=== PATIENT | male | born 1995 | race Two or more races ===

== ENCOUNTER 2019-06-30 13:31 | Emergency (ER) | payer MEDICAID ==
[~2019-06-30] VITALS: Ht 175.3 cm; Wt 68.0 kg
[2019-06-30 14:18] VITALS: BP 114/67
== END 2019-06-30 15:27 | disposition home or self-care (01) ==
LOC: ER 13:32
DX: F41.9 Anxiety disorder, unspecified (principal); F17.210 Nicotine dependence, cigarettes, uncomplicated

== ENCOUNTER → 2020-03-13 | Emergency (ER) | payer MEDICAID ==
[~2020-03-13] VITALS: Ht 175.3 cm; Wt 70.3 kg
[~2020-03-13] MED LIST: AZITHROMYCIN 250 MG TAB PO ONE; cefTRIAXone SODIUM 250 MG VL IM ONE
[2020-03-13 14:55] VITALS: BP 129/96
== END | disposition home or self-care (01) ==
LOC: ER 14:31
DX: N39.0 Urinary tract infection, site not specified (principal); F17.210 Nicotine dependence, cigarettes, uncomplicated
CPT/HCPCS: 81002; 96372; 99283; J0696

== ENCOUNTER 2021-02-25 03:26 | Emergency (ER) | payer MEDICAID ==
[~2021-02-25] VITALS: Ht 175.3 cm; Wt 72.6 kg
[2021-02-25 03:28] VITALS: BP 135/102
== END 2021-02-25 03:43 ==
LOC: ER 03:26
DX: F14.10 Cocaine abuse, uncomplicated (principal); F41.9 Anxiety disorder, unspecified; J45.909 Unspecified asthma, uncomplicated; F17.210 Nicotine dependence, cigarettes, uncomplicated

== ENCOUNTER 2025-08-22 18:58 | Emergency (ER) | payer MEDICAID, OTHER ==
[~2025-08-22] VITALS: Ht 175.3 cm; Wt 58.6 kg
[2025-08-22 19:05] VITALS: BP 114/77; PULSE 96; RESP 20; TEMP 98; O2SAT 99
[2025-08-22] MEDS: SODIUM CHLORIDE 0.9% 1,000 ML IV ONE ×2 (19:30)
[2025-08-22 19:45] LABS: Hematocrit 42.2 % (41.0-53.0); Hemoglobin 14.4 g/dL (13.5-17.5); Mean Corpuscular Hemoglobin 28.7 pg (28.0-32.0); Mean Corpuscular Volume 84.3 fL (80.0-100.0); Nucleated Red Blood Cells % 0.0 %
[2025-08-22 19:57] LABS: Alanine Aminotransferase 23 U/L (7-40); Albumin 4.8 g/dL (3.2-4.8); Alkaline Phosphatase 135 U/L (46-116); Anion Gap 17 (5-15); BUN/Creatinine Ratio 5.2 (10.0-20.0); Blood Urea Nitrogen < 5 mg/dL (9-23); Calcium 9.3 mg/dL (8.7-10.4); Carbon Dioxide 17 mmol/L (20-31); Chloride 102 mmol/L (98-107); Magnesium 2.0 mg/dL (1.6-2.6); Potassium 3.3 mmol/L (3.5-5.1); Sodium 136 mmol/L (136-145); Total Protein 7.7 g/dL (5.7-8.2)
[2025-08-22 19:59] LABS: Bilirubin, Total 1.3 mg/dL (0.2-1.0)
[2025-08-22 20:03] LABS: Glucose 513 mg/dL (74-106)
--- NOTE | 2025-08-22 21:08 | ED.PDOC ---
History of present illness HPI Comments 29-year-old male is brought in by ambulance for chief complaint of hyperglycemia. Per EMS report, patient has a significant history for asthma and diabetes and was found with an on scene blood glucose of 589 after drinking alcohol and smoking cocaine, intermittently, all day, today. Patient reports on having additional associated symptoms of left back pain and diarrhea. EN route, patient received 500 mL of normal saline bolus and is reported to have taken 20 units of his insulin before EMS arrival on scene. Patient takes insulin and 500 mg of metformin for managing his diabetes. Patient denies on having any further acute symptoms at this time, including chest pain, shortness of breath, polyuria, polyphagia, and polydipsia. REVIEW OF SYSTEMS: General: No fever, no chills, HEENT: No neck pain, no blurred vision Cardiac: No chest pain. No palpitations. Lungs: No shortness of breath, GI: Diarrhea. No abdominal pain, no vomiting Musculoskeletal: Left back pain. No joint pain. Skin: No rash, no wound Neuro: No headache, no dizziness, no syncope Endocrine: Hyperglycemia PHYSICAL EXAM: General: Awake, alert and oriented. No acute distress. Skin: Skin in warm, dry and intact without rashes or lesions. HEENT: The head is normocephalic and atraumatic. Conjunctivae are clear without exudates or hemorrhage. Sclera is non-icteric. Neck: Normal range of motion. No JVD. Cardiac: Regular rate Respiratory: No signs of respiratory distress. No Stridor. Extremities: Upper and lower extremities are atraumatic in appearance without deformity. Neurological: The patient is awake, alert and oriented to person, place, and time with normal speech. Speech is clear. There is no facial asymmetry. Psychiatric: Appropriate mood and affect. Good judgement and insight. Chief Complaint: Hyperglycemia Time Seen by MD: 19:20 Primary Care Provider: NONE History of present illness: Nurses Notes, Ultrasound Supervisor Notes, Medications, Allergies Allergies: Coded Allergies: NO KNOWN ALLERGIES (Unverified , 05/14/19) Information Source: Patient, Emergency Med Personnel Mode of Arrival: EMS Past Medical History PAST MEDICAL HISTORY: Anxiety, Asthma, DM, Seizures Surgical History: Denies all surgeries Family History Family History: Unknown Social History Smoker: Cigarettes Alcohol: Other Drugs: Cocaine Lives In: Home Was a procedure done? Was a procedure done?: No Differential Diagnosis (DM) Differential Diagnosis: Dehydration, Diabetic Coma, DKA, Electrolyte Abnormality, Hyperglycemia, Other (Toxic encephalopathy) X-Ray, Labs, Meds, VS Vital Signs Date Time Temp Pulse Resp B/P (MAP) Pulse Ox O2 Delivery O2 Flow Rate FiO2 08/22/25 19:05 98.0 96 20 114/77 99 98.0 Lab Test 08/22/25 19:34 08/22/25 19:28 08/22/25 19:10 Range/Units White Blood Count 5.7 4.4-10.8 10^3/uL Red Blood Count 5.00 4.5-5.90 10^6/uL Hemoglobin 14.4 13.5-17.5 g/dL Hematocrit 42.2 41.0-53.0 % Mean Corpuscular Volume 84.3 80.0-100.0 fL Mean Corpuscular Hemoglobin 28.7 28.0-32.0 pg Mean Corpuscular Hemoglobin Concent 34.1 32.0-36.0 g/dL Red Cell Distribution Width 13.0 11.8-14.3 % Platelet Count 251 140-450 10^3/uL Mean Platelet Volume 8.8 6.9-10.8 fL Neutrophils (%) (Auto) 54.0 37.0-80.0 % Lymphocytes (%) (Auto) 33.7 10.0-50.0 % Monocytes (%) (Auto) 10.4 0.0-12.0 % Eosinophils (%) (Auto) 1.1 0.0-7.0 % Basophils (%) (Auto) 0.8 0.0-2.0 % Neutrophils # (Auto) 3.1 1.6-8.6 10 ^3/uL Lymphocytes # (Auto) 1.9 0.4-5.4 10 ^3/uL Monocytes # (Auto) 0.6 0-1.3 10 ^3/uL Eosinophils # (Auto) 0.1 0-0.8 10 ^3/uL Basophils # (Auto) 0 0-0.2 10 ^3/uL Nucleated Red Blood Cells 0.0 % Sodium Level 136 136-145 mmol/L Potassium Level 3.3 L 3.5-5.1 mmol/L Chloride Level 102 98-107 mmol/L Carbon Dioxide Level 17 L 20-31 mmol/L Anion Gap 17 H 5-15 Blood Urea Nitrogen < 5 L 9-23 mg/dL Creatinine 0.97 0.700-1.30 mg/dL Glomerular Filtration Rate Calc 108 >90 mL/min BUN/Creatinine Ratio 5.2 L 10.0-20.0 Serum Glucose 513 *H 74-106 mg/dL Calcium Level 9.3 8.7-10.4 mg/dL Magnesium Level 2.0 1.6-2.6 mg/dL Total Bilirubin 1.3 H 0.2-1.0 mg/dL Aspartate Amino Transferase (AST) 20 13-40 U/L Alanine Aminotransferase (ALT) 23 7-40 U/L Alkaline Phosphatase 135 H 46-116 U/L Total Protein 7.7 5.7-8.2 g/dL Albumin 4.8 3.2-4.8 g/dL Beta-Hydroxybutyric Acid 0.648 H < 0.4 mmol/L Plasma/Serum Blood Alcohol 65.3 H <10 mg/dL Blood Gas Specimen Type Venous Blood Gas Sample Site Vbg - n/a Blood Gas Patient Temperature 37.0 Arterial Blood Date Drawn [id number] [place]ard Test N/a Venous Blood pH 7.317 L 7.320-7.430 Venous Blood pCO2 at Patient Temp 30.3 L 38.0-54.0 mmHg Venous Blood pO2 at Patient Temp < 36.5 23.0-48.0 mmHg Venous Blood HCO3 15.2 L 22.0-29.0 mmol/L Venous Blood Base Excess -9.5 L -2.0-3.0 mmol/L Blood Gas Modality Room air FiO2 % 21.0 Urine Color Colorless Yellow Urine Clarity Clear Clear Urine pH 5.0 5.0-9.0 Urine Specific [place] 1.043 H 1.001-1.035 Urine Protein Normal Negative Urine Ketones 1+ H Negative Urine Blood Normal Negative /uL Urine Nitrite Negative Negative Urine Bilirubin Negative Negative Urine Urobilinogen Normal Negative mg/dL Urine Leukocyte Esterase Negative Negative /uL Urine Glucose 4+ H Normal mg/dL Urine Opiates Screen Neg NEGATIVE Urine Fentanyl Screen Neg NEGATIVE Urine Barbiturates Screen Neg NEGATIVE Urine Phencyclidine Screen Neg NEGATIVE Urine Amphetamines Screen Neg NEGATIVE Urine Benzodiazepines Screen Neg NEGATIVE Urine Cocaine Screen Pos NEGATIVE Urine Cannabinoids Screen Neg NEGATIVE Time of 1ST Reevaluation: 19:50 Reevaluation 1ST: Unchanged Patient Education/Counseling: Need For Follow Up Family Education/Counseling: No Family Present SEPSIS Sepsis Screen Date sepsis recognized/suspect: Aug 22, 2025 Time Sepsis recognized/suspect: 1905 Recent Procedure: No On Antibiotic Therapy: No Respiratory Rate >20: No Heart Rate >90: Yes Temp<36 C (96.8 F) or >38.3 C: No SBP <90 or MAP <65 mmHG: No New Acute Mental Status Change: No Is the patient on CPAP, BIPAP,: No Physician Orders Venous Blood Gas (08/22/25 19:39) Vital Signs Date Time Temp Pulse Resp B/P (MAP) Pulse Ox O2 Delivery O2 Flow Rate FiO2 08/22/25 19:05 98.0 96 20 114/77 99 98.0 Laboratory Tests Test 08/22/25 19:34 White Blood Count 5.7 10^3/uL (4.4-10.8) Departure 1 Departure Time of Disposition: 05:04 Impression: Primary Impression: Hyperglycemia Additional Impressions: DKA (diabetic ketoacidosis) Eloped from emergency department Disposition: LEFT AGAINST MEDICAL ADVICE Condition: Stable Comments Patient was seen and evaluated on arrival to the emergency department. Discussed plan of care with the patient. He eloped from the emergency department prior to receiving treatment. Critical Care Note Critical Care Time?: No Stability Stability form required: No Heart Score Heart Score: Heart Score Response (Comments) Value History N/A 0 EKG N/A 0 Age N/A 0 Risk Factors N/A 0 Troponin N/A 0 Total 0 I personally scribed for SHAINA STEVENS MD ([email or web address]) on 08/22/25 at 21:08. Electronically submitted by Andrew Carrillo ([email or web address]). I personally scribed for SHAINA STEVENS MD ([email or web address]) on 08/22/25 at 21:47. Electronically submitted by Andrew Carrillo ([email or web address]). SHAINA STEVENS MD Aug 22, 2025 21:08
[2025-08-22 23:03] LABS: Urine Protein, UAD Normal (Negative)
[2025-08-22 23:18] LABS: Barbiturate Scree,Urine Neg (NEGATIVE); Opiate Scree,Urine Neg (NEGATIVE)
[2025-08-22 23:19] LABS: Amphetamine Screen, Urine Neg (NEGATIVE); Benzodiazephine Screen, Urine Neg (NEGATIVE); Cannabinoid Screen, Urine Neg (NEGATIVE); Cocaine Screen, Urine Pos (NEGATIVE); Phencyclidine Screen, Urine Neg (NEGATIVE)
== END 2025-08-22 20:30 | disposition left against medical advice (07) ==
LOC: ER 18:58 → EDBD 18:58 → ER 20:30
DX: E11.65 Type 2 diabetes mellitus with hyperglycemia (principal); E11.10 Type 2 diabetes mellitus with ketoacidosis without coma; F14.90 Cocaine use, unspecified, uncomplicated; F17.210 Nicotine dependence, cigarettes, uncomplicated; J45.909 Unspecified asthma, uncomplicated; Z79.4 Long term (current) use of insulin; Z79.899 Other long term (current) drug therapy
CPT/HCPCS: 36415; 36600; 80053; 80307; 80320; 81003; 82010; 82805; 83735; 85025